=== PATIENT | female | born 1965 | race Two or more races ===

== ENCOUNTER → 2024-07-07 | Outpatient (CLI) | payer OTHER, SELFPAY ==
--- NOTE | 2024-07-07 | XR_ITS ---
Examination: Lumbar spine, 5 views Technique: Lumbar spine AP, lateral, coned lateral lower lumbar spine, bilateral obliques 5 views Exam date and time: July 07, 2024 at 0733 hours INDICATIONS: Left-sided lower back pain radiating to the left hip beginning 5 days ago. FINDINGS: Moderate osteopenia Diffuse moderate facet arthropathy Grade 1 anterolisthesis L4 on L5 Diffuse lumbar disc narrowing, moderate to advanced L5-S1 No fracture IMPRESSION: Diffuse lumbar degenerative disc disease, moderate to advanced L5-S1
--- NOTE | 2024-07-07 | XR_ITS ---
Examination: Foot bilateral, 6 views Technique: AP, oblique, lateral views each foot total 6 views Date and time of exam: July 07, 2024 0733 hours INDICATIONS: Foot pain beginning one week ago. FINDINGS: Moderate osteopenia Bilateral moderate narrowing first metatarsophalangeal joints 14 mm plantar 6 mm posterior left bony calcaneal spurs 14 mm 4 mm right plantar bony calcaneal spurs Mild to moderate diffuse intertarsal osteoarthritis No fracture involving either foot IMPRESSION: Bilateral osteoarthritis as above Prominent plantar bony calcaneal spurs as above
--- NOTE | 2024-07-07 | XR_ITS ---
Examination: Knee, left , 3 views Technique: Knee AP, lateral, oblique 3 views Date and time of exam: July 07, 2024 0733 hours INDICATIONS: Left knee swelling beginning 5 days ago. FINDINGS: Moderate osteopenia Mild to moderate tricompartment osteoarthritis Moderate knee effusion No fracture IMPRESSION: Mild to moderate tricompartment osteoarthritis Moderate knee effusion
== END | disposition home or self-care (01) ==
LOC: CDIM 07:16
PROVIDERS: PCP Family Medicine; Referring Provider Family Medicine; Visit Provider Family Medicine
DX: M17.12 Unilateral primary osteoarthritis, left knee (principal); M25.462 Effusion, left knee; M51.369 Other intervertebral disc degeneration, lumbar region without mention of lumbar back pain or lower extremity pain; M51.379 Other intervertebral disc degeneration, lumbosacral region without mention of lumbar back pain or lower extremity pain; M19.272 Secondary osteoarthritis, left ankle and foot; M77.32 Calcaneal spur, left foot; M77.31 Calcaneal spur, right foot
CPT/HCPCS: 72110; 73562; 73630

== ENCOUNTER → 2025-02-16 | Outpatient (CLI) | payer OTHER, SELFPAY ==
[2025-02-16 14:36] LABS: Collection Type, Urine Clean Catch
[2025-02-16 16:25] LABS: Bacteria,Urine Rare; Bilirubin,Urine Negative (Negative); Blood,Urine 3+ (Negative); Clarity,Urine Turbid (Clear/Hazy); Color,Urine Yellow (Lt Yel-Yel); Glucose, Urine Negative (Negative); Ketones,Urine Negative (Negative); Leukocyte Esterase,Urine Positive (Negative); Nitrite,Urine Negative (Negative); PH,Urine 5.5 (5.0-7.0); Protein,Urine 2+ (Neg - Trace); RBC,Urine 104 /hpf (0-3); Specific Gravity,Urine 1.019 (1.001-1.035); Squamous Epithelial Cell,Urine 4 /hpf (0-5); Urobilinogen,Urine Negative mg/dL (0.0-1.0); WBC,Urine 636 /hpf (0-5)
== END | disposition home or self-care (01) ==
LOC: SLDO 14:26
PROVIDERS: Referring Provider Nurse Practitioner Family; Visit Provider Nurse Practitioner Family
DX: N39.0 Urinary tract infection, site not specified (principal)
CPT/HCPCS: 81001; 87077; 87086; 87186